=== PATIENT | female | born 1990 | race Caucasian/White ===

== ENCOUNTER 2018-11-03 12:59 | Emergency (ER) | payer MEDICAID, OTHER ==
[~2018-11-03] VITALS: Ht 152.4 cm; Wt 75.4 kg
[2018-11-03 13:05] VITALS: BP 117/72
--- NOTE | 2018-11-03 13:47 | NUR ---
PT ambulated to bed 05.
--- NOTE | 2018-11-03 14:00 | NUR ---
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 TRIED THERAFLU WITH NO RELIEF. STATES SHE MAY HAVE PNEUMONIA. PATIENT STATES PAIN OF 5/10 AT THIS TIME; VSS; PATIENT POSITIONED FOR COMFORT; HOB ELEVATED; BEDRAILS UP X1; BED DOWN. ER MD MADE AWARE OF PT STATUS.
[2018-11-03] MEDS ORDERED: PROMETHAZINE 25 MG/ML VIAL IM ONE (14:15)
[2018-11-03] MEDS ORDERED: ALBUTEROL SULFATE/IPRATROPIU 3 ML SOL IH ONE (14:15)
[2018-11-03] MEDS ORDERED: DEXAMETHASONE 10 MG/ML VIAL IM ONE (14:15)
--- NOTE | 2018-11-03 14:37 | NUR ---
[facility]AT[facility] DRUG GIVEN ORDERED ENCOURAGED PATIENT FOR INTERMITTENT DEEP BREATHING AND COUGH DURING THERAPY
--- NOTE | 2018-11-03 14:48 | NUR ---
Ericka casper in [facility] - 11/03/18 at 1528 by [facility] INFLUENZA AND RSV SWABS COLLECTED AND SENT TO LAB.
[2018-11-03 15:31] LABS: APPEARANCE,URINE CLEAR (CLEAR); BILIRUBIN,URINE NEGATIVE (NEGATIVE); BLOOD, URINE NEGATIVE (NEGATIVE); COLOR,URINE YELLOW (YELLOW); LEUKOCYTE ESTERASE ,URINE TRACE (NEGATIVE); NITRITE, URINE NEGATIVE (NEGATIVE); UGLUCOSE NEGATIVE (NEGATIVE)
[2018-11-03 15:48] LABS: RBC,URINE 0-5 (RARE) /HPF (0-5)
[2018-11-03 16:00] VITALS: BP 109/64
--- NOTE | 2018-11-03 16:00 | NUR ---
Patient discharged with v/s stable. Written and verbal after care instructions given and explained. Patient alert, oriented and verbalized understanding of instructions. Ambulatory with steady gait. All questions addressed prior to discharge. ID band removed. Patient advised to follow up with PMD. Rx of AALBUTEROL INH,PREDNISONEPROMETHAZINE given. Patient educated on indication of medication including possible reaction and side effects. Opportunity to ask questions provided and answered.
== END 2018-11-03 16:00 | disposition home or self-care (01) ==
LOC: MED 12:59
DX: J45.909 Unspecified asthma, uncomplicated (principal)
CPT/HCPCS: 71045; 81001; 81025; 87086; 87804; 94640; 96372; 99284; J1100; J2550; J7620; Q0092; 36415